=== PATIENT | male | born 1975 | race Caucasian/White ===

== ENCOUNTER → 2023-09-22 16:01 | Outpatient (REF) | payer OTHER, SELFPAY | LOC: RAD 16:01 | PROVIDERS: ATTENDING PHYSICIAN Family Medicine | DX: R59.1 Generalized enlarged lymph nodes (principal) | CPT/HCPCS: 76536 ==

== ENCOUNTER → 2023-10-18 08:29 | Outpatient (REF) | payer OTHER, SELFPAY ==
[2023-10-18 09:14] VITALS: BP 123/87; BP_SYST 67
== END ==
LOC: RADI 08:29
PROVIDERS: ATTENDING PHYSICIAN Family Medicine
DX: E04.1 Nontoxic single thyroid nodule (principal)
CPT/HCPCS: 88173; 10005

== ENCOUNTER 2025-01-06 15:07 | Emergency (ER) | payer OTHER, SELFPAY ==
[2025-01-06 15:18] VITALS: BP 133/90
[2025-01-06 15:46] VITALS: BP 137/89
[2025-01-06 16:00] VITALS: BP 132/89
--- NOTE | 2025-01-06 16:14 | ED.GENMED ---
History of Present Illness
General
Chief Complaint: Head Injury
Source: patient and spouse
Exam Limitations: none
Time Seen by Provider: 01/06/25 15:37
Nursing documentation reviewed up to this point in time: agreed with
History of Present Illness
History of Present Illness:
49-year-old male presenting to the emergency department today after falling off a 6 foot ladder hitting the back of his head initially hitting his low back. At the time he seemed to have difficulty with memory over the next few minutes but he had
improvement over the next hour. He currently feels back to normal. Some ongoing buttock pain as well as mild headache. No vomiting no complete loss of consciousness at any point not on blood thinners.
Review of Systems
Review of Systems
Allergies reviewed?: Yes
All Other Systems: ROS reviewed and negative except as documented in HPI and ROS
Phy Exam
Physical Exam
Physical Exam:
GENERAL: Alert , in no apparent distress
EYE: pupils equal and reactive
NECK: Supple, no significant adenopathy.
ENT: o/p clr, mmm.
CARDIAC: Regular rate and rhythm .
LUNGS: Clear breath sounds bilaterally, no acute respiratory distress, no wheezes/rales/rhonchi
ABDOMEN: Soft, without focal tenderness, no r/g, no cvat
NEUROLOGICAL: Alert and oriented, no focal neuro deficits
SKIN: Warm and dry, skin intact.
MUSCULOSKELETAL: No edema, well perfused.
PSYCH: Normal and appropriate interaction.
5-5 upper and lower extremity strength normal sensation with palpating bilaterally normal finger-nose and [id number] no pronator drift
Course
Orders/Labs/Results
Orders:
Orders
01/06/25 15:24
CT Cervical Spine W/o Iv Contr Urgent
Comment:
Reason For Exam: fall from [address] Head W/o Iv Contrast Urgent
Comment:
Reason For Exam: fall 6 ft from ladder, confusion
Vital Signs
Initial and Last Documented VS:
Initial Vital Signs
Temp Pulse Resp BP Pulse Ox
98.1 F 98 18 133/90 98
01/06/25 15:18 01/06/25 15:18 01/06/25 15:18 01/06/25 15:18 01/06/25 15:18
Last Documented Vital Signs
Temp Pulse Resp BP Pulse Ox
98.1 F 90 15 132/89 99
01/06/25 15:18 01/06/25 16:00 01/06/25 16:00 01/06/25 16:00 01/06/25 16:00
MDM/Problems Addressed
MDM/Problems Addressed:
57-year-old male presenting to the emergency department after falling off a 6 foot ladder just prior to arrival. No loss of consciousness but did have some memory issues immediately thereafter which have been improving since. He now feels back to
normal mentally but does still have some mild ongoing headache and buttock discomfort. Here his examination was very reassuring with a normal neurologic evaluation and no evidence of significant trauma. Extremity examination is normal no abdominal
pain no reproducible back pain. Head CT and neck CT without emergent findings. At this point patient stable for discharge return precautions given. Incidental findings of the CT scan was explained to the patient he was advised for close
outpatient follow-up for this.
*Critical Care Note
Total Time (30-74mins, 75-104mins- exclusive of procedures): Not Applicable
ED Attending Note
-
Portions of this chart may have been created with voice recognition software.� Occasional wrong word or��sound alike� substitutions may have occurred due to the inherent limitations of voice recognition software.
Discharge Plan
Departure
Patient Disposition: Home (Routine Discharge)
Date of Disposition: 01/06/25
Time of Disposition: 16:14
Patient with high blood pressure during this ER visit?: No
Condition: Good
Covid-19: Not Applicable
Discharge Problem:
Minor closed head injury
Instructions: Minor Head Injury (DC)
Referrals:
Dada Holcomb MD [Family Provider] -
Stand Alone Forms: Return to Work
Activity Restrictions/Additional Instructions:
You came to the emergency department today after a fall. Here your reassuring assessment with normal head and neck CT. Please rest at home and return for any worsening, new or concerning symptoms.
Interventions
Interventions:
*Risk Screen - Suicide Last Done: 01/06/25 15:18
*General Assessment Last Done: 01/06/25 15:18
ED- Neurological Assessment Last Done: 01/06/25 15:49
ED-Skin Assessment Last Done: 01/06/25 15:49
Discharge Date and Time
Print Language: SLOVAK
== END 2025-01-06 16:22 | disposition home or self-care (01) ==
LOC: EMR 15:07
PROVIDERS: EMERGENCY PHYSICIAN Student in an Organized Health Care Education/Training Program; FAMILY PHYSICIAN Family Medicine
DX: S09.90XA Unspecified injury of head, initial encounter (principal); W11.XXXA Fall on and from ladder, initial encounter
CPT/HCPCS: 99285; 70450; 72125

== ENCOUNTER → 2025-02-05 17:24 | Outpatient (REF) | payer OTHER, SELFPAY | LOC: RAD 17:24 | PROVIDERS: ATTENDING PHYSICIAN Family Medicine | DX: R93.89 Abnormal findings on diagnostic imaging of other specified body structures (principal) | CPT/HCPCS: 76536 ==

== ENCOUNTER → 2025-05-22 21:45 | Outpatient (REF) | payer OTHER, SELFPAY | LOC: DHSLP 21:45 | PROVIDERS: ATTENDING PHYSICIAN Family Medicine | DX: G47.61 Periodic limb movement disorder (principal); R06.83 Snoring | CPT/HCPCS: 95810 ==